=== PATIENT | female | born 1985 | race African-American/Black ===

== ENCOUNTER 2018-11-29 11:51 | Emergency (ER) | payer SELFPAY ==
[~2018-11-29] VITALS: Ht 157.5 cm; Wt 84.0 kg
[2018-11-29] MEDS ORDERED: SODIUM CHLORIDE 0.9% 1,000 ML IV ONE (12:27)
[2018-11-29] MEDS ORDERED: KETOROLAC 30MG/ML VIAL IV STA (12:27)
[2018-11-29] MEDS ORDERED: METOCLOPRAMIDE HCL 10MG/2ML VIAL IV ONE (12:30)
[2018-11-29 14:43] VITALS: BP 107/53
== END 2018-11-29 14:43 | disposition home or self-care (01) ==
LOC: ER 11:51
DX: R51 Headache (principal); B34.9 Viral infection, unspecified; H53.8 Other visual disturbances
CPT/HCPCS: 81025; 96374; 96375; 99283; J1885; J2765; J7030; Z7610